=== PATIENT | female | born 1945 | race Caucasian/White ===

== ENCOUNTER 2021-04-09 10:58 | Inpatient (IN) | payer OTHER ==
[~2021-04-09] VITALS: Ht 160 cm; Wt 108.9 kg
[2021-04-09] MEDS ORDERED: ENOXAPARIN40 MG/0.4 SUBQ (12:14)
[2021-04-09] MEDS ORDERED: HYDRALAZIN20 MG/1 ML IV PUSH (12:17)
[2021-04-09] MEDS ORDERED: SERTRALINE HCL100 MG PO (12:18)
[2021-04-09] MEDS ORDERED: MECLIZINE HCL25 MG PO (12:18)
[2021-04-09] MEDS ORDERED: HYDROCODON-ACE1 EAC7 PO (12:18)
[2021-04-09] MEDS ORDERED: PHENYTOIN SODI100 M3 PO (12:19)
[2021-04-09] MEDS ORDERED: SIMVASTATIN40 MG PO (12:20)
[2021-04-09] MEDS ORDERED: MELOXICAM7.5 MG PO (12:20)
[2021-04-09] MEDS ORDERED: LISINOPRIL10 MG PO (12:20)
[2021-04-09] MEDS ORDERED: SULFAZINE500 MG PO (12:21)
[2021-04-09 15:40] VITALS: BP 141/74
[2021-04-09 19:31] VITALS: BP 135/54
[2021-04-09 20:40] VITALS: BP 135/54
[2021-04-10 05:56] LABS: ALBUMIN 3.2 g/dL (3.4-5.0); CHOLESTEROL 181 mg/dL (<200); DIRECT BILIRUBIN < 0.1 mg/dL (<0.1-0.2); HDL CHOLESTEROL 42 mg/dL (>40); LDL CHOLESTEROL 116 mg/dL (<100); SGOT 19 U/L (15-37); SGPT 24 U/L (30-65); TC:HDL 4.3 Ratio (Not establshd); TOTAL BILIRUBIN 0.4 mg/dL (0.2-1.0); TOTAL PROTEIN 6.4 g/dL (6.4-8.2); TRIGLYCERIDE 118 mg/dL (<150); VLDL 24 mg/dL (<40)
[2021-04-10 05:59] LABS: SERUM ASSESSMENT Clear
[2021-04-10 07:45] VITALS: BP 141/81
[2021-04-10 19:34] VITALS: BP 138/64
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
[2021-04-10 22:57] VITALS: BP 138/64
[2021-04-11 00:06] LABS: GLYCOHEMOGLOBIN (HGB A1C) 5.1 % (4.8-5.6)
[2021-04-11 09:03] VITALS: BP 133/47
[2021-04-11 12:44] VITALS: BP 133/47
[2021-04-11 20:16] VITALS: BP 138/54
[2021-04-12 09:14] VITALS: BP 127/56
[2021-04-12 19:48] VITALS: BP 137/66
[2021-04-13 09:56] VITALS: BP 143/60
[2021-04-13 10:37] VITALS: BP 128/53
[2021-04-13 19:55] VITALS: BP 152/68
[2021-04-14 08:00] VITALS: BP 133/56
[2021-04-14 12:51] VITALS: BP 133/85
[2021-04-14 19:34] VITALS: BP 133/50
[2021-04-15 09:28] VITALS: BP 117/57
[2021-04-15 20:06] LABS: SYPHILIS AB Non Reactive (Non Reactive)
[2021-04-15 20:15] VITALS: BP 167/72
[2021-04-15 21:15] VITALS: BP 167/72
[2021-04-16 09:07] VITALS: BP 121/63
[2021-04-16 09:52] VITALS: BP 121/63
[2021-04-16 20:30] VITALS: BP 112/47
[2021-04-16 20:49] VITALS: BP 112/47
[2021-04-17 09:45] VITALS: BP 117/61
[2021-04-17 19:16] VITALS: BP 113/50
[2021-04-18 10:20] VITALS: BP 122/57
[2021-04-18 10:36] VITALS: BP 122/57
[2021-04-18] MEDS ORDERED: PHENYTOIN SODI100 M3 PO (12:12)
[2021-04-18] MEDS ORDERED: ZOLOFT 50 MG TA50 MG PO (12:13)
[2021-04-18] MEDS ORDERED: MICONAZOLE NITR45 G3 TOP (12:14)
[2021-04-18] MEDS ORDERED: PROTONIX40 M4 PO (12:14)
[2021-04-18 12:26] VITALS: BP 122/57
--- NOTE | 2021-04-19 22:15 | D ---
[facility] [place] [address] DISCHARGE SUMMARY Name: ASTRID DANG Room #: 528B-A [facility] IN M.R.#: [id number] Admission: 04/09/21 Attend Phys: Linda Welch DO Discharge: 04/18/21 Date of : 43 Report #: [id number] THIS REPORT FOR: cc: Jasson Thomas MD, Robert MD Kerstein, Andrew H. DO ~ DOC #: [id number] LINDA Welch DO DATE OF SERVICE: 04/18/2021 INPATIENT PSYCHIATRIC DISCHARGE SUMMARY ATTENDING PSYCHIATRIST: Linda Welch D.O. TANK CAR REPAIRER: At the time of discharge is Francisco Lino M.D. DISCHARGE DIAGNOSES: Major depressive disorder, single episode, severe degree, improved; mild neurocognitive disorder, likely due to Alzheimer's disease; however, not meeting criteria for dementia. ADDITIONAL FOOTWEAR SALES LEADER: This admission was Remi Gomez, Ph.D. for Neuropsychology. MEDICAL COMORBIDITIES: Hypertension, fungal rash on feet, seizure disorder by history. HISTORY OF PRESENT ILLNESS: The patient is discharging back to independent living. She supposedly has been staying with a family member for the first 1-2 weeks out of the hospital. [place], [place], and at the moment, does not have a mental health followup appointment; however, she was given occasions to contact for an intake. The patient should see her PCP within one month. DISCHARGE MEDICATIONS: Lisinopril 10 mg oral daily for hypertension, simvastatin 40 mg oral daily for hyperlipidemia, sulfasalazine 1000 mg oral twice per day for autoimmune concerns, phenytoin sodium extended release 100 mg capsule oral daily, sertraline increased this admission to 125 mg oral daily for major depression, pantoprazole 40 mg oral daily, miconazole 2 grams applied to affected areas on feet for 10 more days. DIET: Regular diet. ACTIVITY LEVEL: As tolerated. INSTRUCTIONS: No alcohol, no illicit drugs. Her family reported firearms were removed from her home and secured. They also [facility] [address] [place] [address] DISCHARGE SUMMARY Name: ALTONASTRID OSWALD Room #: 528B-A [facility] IN ..#: [id number] Admission: 04/09/21 Attend Phys: Linda Welch DO Discharge: 04/18/21 Date of : 43 Report #: [id number] advised to make sure she did not have pill stockpiles at her home. The patient's DPOA was not enacted this admission. SIGNIFICANT LABORATORIES THIS ADMISSION: Hemoglobin A1c 5.1. Lipids were triglycerides 118, cholesterol 181, LDL 116. B12 level was 1249. Vitamin D was normal up to 2.1. Syphilis serology was negative. COVID-19 was negative as well. REASON FOR ADMISSION: Back on 04/09/2021, a 75-year-old female we got from [facility] following a significant [place] overdose so that involved hydrocodone and acetaminophen. The patient's had very recently and was in family conflict. HOSPITAL COURSE: The patient was admitted to Geriatric Psychiatry Unit. The patient had poor insight and remarkably little grief. The patient had a number of dysfunctional beliefs, I do not whether it made a huge dent in them, personality factors were thought to be milk wagon driver of her behavior. Psych medication was I only increased her sertraline to 125 mg daily. Neuropsychology was consulted as her SLUMS was 20/30. However, on the normal task, the patient has not scored in the range to be demented yet. This was discussed at length with the family; her uglswzkm-po-llu, Melissa and son, Kyler. At the day of discharge, the patient was not suicidal or homicidal, fully oriented, felt to be safe for step down. PHYSICAL EXAMINATION: VITAL SIGNS: Temperature 36.8, pulse 80, respirations 18, BP 122/57, O2 sat 94%. MUSCULOSKELETAL EXAM: Large habitus obese female. MENTAL STATUS EXAM: She is a well-developed, obese female, appearing at least stated age. Attention limited. Concentration limited. Speech normal rate, volume, and tone. Thought process is linear and goal directed. Thought content focused on discharge, returned to her home, watching ball games. Denied SI and HI. Denied auditory, visual or tactile hallucinations. Denied hopelessness and helplessness. Memory known to be impaired, but not formally tested on the date of discharge. Insight limited. Judgment fair. Fund of knowledge average range. Prognosis for this patient is fair to guarded and will depend on external support supervision by family and if she does convert to neurodegenerative disorder. DO ASHLEIGH Jaramillo/CASANDRA/JEOVANY [facility] [address] [place] [address] DISCHARGE SUMMARY Name: ASTRID DANG OSWALD [facility] [id number] Admission: 04/09/21 Attend Phys: Linda Welch DO Discharge: 04/18/21 Date of : 43 Report #: [id number] <ELECTRONICALLY SIGNED> By: Linda Welch DO 04/19/21 2215 [id number] Linda Welch DO /nt
== END 2021-04-18 15:19 | disposition home or self-care (01) | DRG 57 ==
LOC: SBH
PROVIDERS: Nurse Practitioner; ADMIT Psychiatry & Neurology Psychiatry; ATTEND Psychiatry & Neurology Psychiatry
DX: G30.9 Alzheimer's disease, unspecified (principal); F02.80 Dementia in other diseases classified elsewhere, unspecified severity, without behavioral disturbance, psychotic disturbance, mood disturbance, and anxiety; Z68.41 Body mass index [BMI] 40.0-44.9, adult; R45.851 Suicidal ideations; I10 Essential (primary) hypertension; F32.9 Major depressive disorder, single episode, unspecified; E78.5 Hyperlipidemia, unspecified; F43.10 Post-traumatic stress disorder, unspecified; E66.9 Obesity, unspecified; G40.909 Epilepsy, unspecified, not intractable, without status epilepticus; K21.9 Gastro-esophageal reflux disease without esophagitis; K58.9 Irritable bowel syndrome, unspecified; B35.3 Tinea pedis; Z90.49 Acquired absence of other specified parts of digestive tract
CPT/HCPCS: 10880

== ENCOUNTER 2021-04-09 11:59 | Emergency (ER) | payer OTHER ==
[~2021-04-09] VITALS: Ht 160 cm; Wt 94.8 kg
[2021-04-09] MEDS ORDERED: ENOXAPARIN40 MG/0.4 SUBQ (12:14)
[2021-04-09] MEDS ORDERED: HYDRALAZIN20 MG/1 ML IV PUSH (12:17)
[2021-04-09] MEDS ORDERED: HYDROCODON-ACE1 EAC7 PO (12:18)
[2021-04-09] MEDS ORDERED: SERTRALINE HCL100 MG PO (12:18)
[2021-04-09] MEDS ORDERED: MECLIZINE HCL25 MG PO (12:18)
[2021-04-09] MEDS ORDERED: PHENYTOIN SODI100 M3 PO (12:19)
[2021-04-09] MEDS ORDERED: MELOXICAM7.5 MG PO (12:20)
[2021-04-09] MEDS ORDERED: LISINOPRIL10 MG PO (12:20)
[2021-04-09] MEDS ORDERED: SIMVASTATIN40 MG PO (12:20)
[2021-04-09] MEDS ORDERED: SULFAZINE500 MG PO (12:21)
[2021-04-09 13:45] VITALS: BP 146/86
== END 2021-04-09 13:45 ==
LOC: ER 11:59
DX: T40.2X2A Poisoning by other opioids, intentional self-harm, initial encounter (principal); Z20.822 Contact with and (suspected) exposure to COVID-19; E78.5 Hyperlipidemia, unspecified; I10 Essential (primary) hypertension; F32.9 Major depressive disorder, single episode, unspecified; Y92.89 Other specified places as the place of occurrence of the external cause